=== PATIENT | male | born 1970 | race Caucasian/White ===

== ENCOUNTER 2023-08-17 21:20 | Emergency (ER) | payer OTHER, SELFPAY ==
[2023-08-17] VITALS (22 sets, daily range): BP systolic 167–220; BP diastolic 86–134; PULSE 83–96; O2SAT 92–99; BMI 32.0
--- NOTE | 2023-08-17 21:34 | ECG_ITS ---
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
--- NOTE | 2023-08-17 21:35 | CT_ITS ---
The [address] [address] Patient Name: SHAWANDA GONZALEZ MRN: [id number] date: 1970 Sex: M Assigned Patient Location: ER Current Patient Location: ED.MAIN Accession/Order Number: [id number] Exam Date: 08/17/2023 22:24 Report Date: 08/17/2023 22:53 At the request of: LASHAE PAYAN Procedure: CT head/brain wo con EXAM: CT head/brain wo con HISTORY: Headache, hypertension, left side numb for 24 hrs COMPARISON: None. TECHNIQUE: Axial images were obtained from the skull base to the vertex without contrast enhancement. Sagittal and coronal reformations were provided. FINDINGS: No acute intracranial hemorrhage, extra-axial fluid collection, midline shift shift or mass effect is seen. No space-occupying lesion is demonstrated. There is no evidence of hydrocephalus. There is a patchy asymmetric area of diminished attenuation within the thalamus on the left suggesting an acute small vessel infarction. There are prominent perivascular spaces and/or remote lacunar infarctions within the basal ganglia on the left. Is noted within the left basal ganglia. The cortical damon-white matter interface is intact. There are scattered intracranial vascular calcifications. Only mild mucosal thickening is present within the visualized paranasal sinuses. CT/CT head/brain wo con IMPRESSION: 1. CT findings suggesting an acute small vessel infarction within the right thalamus. 2. No acute intracranial hemorrhage. These findings were discussed with the emergency department (Emiliano Payan) at 2051 hours on 08/17/2023. Electronically authenticated by: EMILIANO MACIEL Date: 08/17/2023 22:53
--- NOTE | 2023-08-17 21:35 | XR_ITS ---
The [address] [address] Patient Name: SHAWANDA GONZALEZ MRN: [id number] date: 1970 Sex: M Assigned Patient Location: ED.MAIN Current Patient Location: ER Accession/Order Number: [id number] Exam Date: 08/17/2023 22:24 Report Date: 08/17/2023 23:12 At the request of: LASHAE PAYAN Procedure: XR chest 1V EXAM: XR chest 1V HISTORY: Hypertension COMPARISON: None. TECHNIQUE: One view of the chest was obtained. FINDINGS: The cardiac silhouette is normal in size. There is mild bibasilar atelectasis and/or scarring. There is no significant pneumothorax or pleural effusion. No acute osseous abnormality is seen. XR/XR chest 1V IMPRESSION: 1. No acute cardiopulmonary abnormality. Electronically authenticated by: Ciara QUEVEDO Date: 08/17/2023 23:12
--- NOTE | 2023-08-17 21:35 | ED.GENADUL1 ---
HPI HPI - General Adult General Chief complaint: Neuro Symptoms/Deficit Stated complaint: NUMBNESS ON LEFT SIDE, HIGH BP Time Seen by Provider: 08/17/23 21:29 History of Present Illness HPI narrative: 52-year-old male presents for elevated blood pressure, headache, and numbness on the left side of his body. 3 days ago he went to the dentist his blood pressure was quite high. Body gave him 5 blood pressure pills to take and he took 1 this morning. The patient has had headache for several days without any trauma or fever or stiff neck. Since last night the left arm and leg have been numb as well as the left side of his face. He has not seen a doctor in many years. He had seen a dentist about 5 months ago and his blood pressure was mildly elevated at that time. Symptoms are continuous. He does not complain of any weakness. Related Data Allergies Allergy/AdvReac Type Severity Reaction Status Date / Time No Known Drug Allergies Allergy Verified 08/17/23 21:37 Opioid HPI Opioid Management Most Recent Opioid Data: Last Pain Scale 5 08/17/23 23:42 Review of Systems ROS Narrative A ten point review of systems is negative except as noted above. Exam Narrative Exam Narrative: Nurses note and vital signs reviewed and patient is not hypoxic. General: The patient appears well and in no apparent distress. Patient is resting comfortably on cart. Skin: Warm, dry, no pallor noted. There is no rash noted. Head: Normocephalic, atraumatic Eye: Normal conjunctiva, no drainage Ears, Nose, Mouth, and Throat: oral mucosa is moist. Nares patent. Cardiovascular: Regular Rate and Rhythm Respiratory: Patient is in no distress, no accessory muscle use, lungs are clear to auscultation, no wheezing, rales or rhonchi Back: non-tender GI: no tenderness to palpation, no masses appreciated. No rebound, guarding, or rigidity noted. Musculoskeletal: The patient has no evidence of calf tenderness, no pitting edema, symmetrical pulses noted bilaterally Neurological: A&O x4, normal speech; cranial nerves II through XII intact. Upper and lower extremity strength 5 out of 5 and symmetric. No pronator drift Psychiatric: Cooperative Constitutional Vital Signs, click to edit/add: Last Vital Signs Pulse 86 08/18/23 00:15 Resp 19 08/18/23 00:15 BP 185/89 H 08/18/23 00:15 Pulse Ox 96 08/17/23 23:59 O2 Del Method Room Air 08/17/23 21:28 Course Vital Signs Vital signs: Vital Signs Pulse Rate 90 08/17/23 21:28 Respiratory Rate 20 08/17/23 21:28 Blood Pressure 220/125 H 08/17/23 21:28 Pulse Oximetry 98 08/17/23 21:28 Oxygen Delivery Method Room Air 08/17/23 21:28 Pulse Rate 86 08/18/23 00:15 Respiratory Rate 19 08/18/23 00:15 Blood Pressure 185/89 H 08/18/23 00:15 Pulse Oximetry 96 08/17/23 23:59 Oxygen Delivery Method Room Air 08/17/23 21:28 Medical Decision Making MDM Narrative Medical decision making narrative: Thalamic infarct is noted and per the patient's history is approximately 24 hours old. His NIH score is 1. He is not a tPA candidate. CTA is ordered and completed here. I have spoken to Dr. Yang at [facility] and the patient is excepted for transfer there by him. The patient is agreeable and stable for transfer. Dr. Yang and I discussed the patient's blood pressure and we will hold off on any antihypertensives if his systolic blood pressure remains below 200. His systolic blood pressure has remained below 200 and he is being transferred by ground. Findings are discussed thoroughly with the patient. Differential Diagnosis Differential Diagnosis: CVA, intracranial hemorrhage Lab Data Lab results reviewed: Yes I reviewed the patient's lab results Labs: Lab Results 08/17/23 08/17/23 Range/Units 21:42 23:05 WBC 8.6 (4.0-11.0) 10^3/uL RBC 4.59 L (4.70-6.10) 10^6/uL Hgb 14.1 (14.0-18.0) g/dL Hct 44.3 (42.0-54.0) % MCV 96.5 H (80.0-94.0) fL MCH 30.7 (25.9-34.0) pg MCHC 31.8 (29.9-35.2) g/dL RDW 13.2 (11.0-15.0) % Plt Count 240 (150-450) 10^3/uL MPV 9.8 (9.5-13.5) fL Neut % (Auto) 52.9 (43.0-75.0) % Lymph % (Auto) 35.0 (20.5-60.0) % Hitchcock % (Auto) 8.6 (1.7-12.0) % Eos % (Auto) 2.6 (0.9-7.0) % Baso % (Auto) 0.6 (0.2-2.0) % Neut # (Auto) 4.5 (1.4-6.5) 10^3/uL Lymph # (Auto) 3.0 (1.2-3.8) 10^3/uL Hitchcock # (Auto) 0.7 (0.3-0.8) 10^3/uL Eos # (Auto) 0.2 (0.0-0.7) 10^3/uL Baso # (Auto) 0.1 (0.0-0.1) 10^3/uL Abs Immat Gran (auto) 0.03 (0.00-0.03) 10^3/uL Imm/Tot Granulo (auto) 0.3 (0.0-0.5) % Sodium 140 (136-145) mmol/L Potassium 3.4 L (3.5-5.1) mmol/L Chloride 101 (98-107) mmol/L Carbon Dioxide 25.4 (21.0-32.0) mmol/L Anion Gap 17.0 BUN 8.0 (7.0-18.0) mg/dL Creatinine 1.19 (0.70-1.30) mg/dL Est GFR ( Amer) >60 (>=60) Est GFR (Non-Af Amer) >60 (>=60) BUN/Creatinine Ratio 6.7 Glucose 130 H (74-106) mg/dL Calcium 9.4 (8.5-10.1) mg/dL Troponin I High Sens 13.3 (4.0-76.1) pg/mL Urine Color Lt. yellow (YELLOW) Urine Clarity Clear (CLEAR) Urine pH 7.0 (5.0-9.0) Ur Specific Hannah 1.010 (1.005-1.025) Urine Protein Negative (NEG/TRACE) mg/dL Urine Glucose (UA) Negative (NEGATIVE) mg/dL Urine Ketones Negative (NEGATIVE) mg/dL Urine Occult Blood Negative (NEGATIVE) Urine Nitrite Negative (NEGATIVE) Urine Bilirubin Negative (NEGATIVE) Urine Urobilinogen 0.2 (0.2-1.0) EU/dL Ur Leukocyte Esterase Negative (NEGATIVE) Urine RBC None seen (0-2) #/HPF Urine WBC None seen (NONE SEEN) #/HPF Ur Squamous Epith Cells None seen (NONE/RARE) #/LPF Urine Crystals None seen (None Seen) #/HPF Amorphous Sediment Few Urine Bacteria None seen (NONE SEEN) #/HPF Urine Casts None seen (NONE SEEN) #/LPF Urine Mucus Trace A (NONE SEEN) Ur Culture Indicated? No Imaging Data CT scan - head: Radiologist's impression: ITS Impressions Chest X-Ray 08/17/23 21:35 IMPRESSION: 1. No acute cardiopulmonary abnormality. Electronically authenticated by: Ciara QUEVEDO Date: 08/17/2023 23:[address] 08/17/23 21:35 IMPRESSION: 1. CT findings suggesting an acute small vessel infarction within the right thalamus. 2. No acute intracranial hemorrhage. These findings were discussed with the emergency department (Emiliano Keller) at 2051 hours on 08/17/2023. Electronically authenticated by: EMILIANO MACIEL Date: 08/17/2023 22:53 Head CTA 08/17/23 23:01 IMPRESSION: 1. Extracranial vessels demonstrate no flow-limiting stenosis, thrombus, dissection, or aneurysm. There is calcific plaque without flow-limiting stenosis in the carotid bifurcations. Moderate stenosis is seen in the origin of the left vertebral artery. 2. Atherosclerotic change with mild to moderate stenosis in the intracranial terminus of the left ICA at the junction of the ICA and intracranial vessels. There is high-grade stenosis with distal hypoplasia of the A1 segment left KAREN with compensatory enlargement of the right A1 segment supplying both A2 segments. Long segment moderate and short segment high-grade stenosis mid to distal portion of the right M1 segment. The MCA bifurcation is patent. Distal branches are patent. No large vessel occlusion. A telephone call regarding the findings in examination was made to and acknowledged by Dr. Keller in the emergency department at 12:15 AM on 08/18/2023. Electronically authenticated by: SAYDA WELCH Date: 08/18/2023 00:18 Neck CTA 08/17/23 23:01 IMPRESSION: 1. Extracranial vessels demonstrate no flow-limiting stenosis, thrombus, dissection, or aneurysm. There is calcific plaque without flow-limiting stenosis in the carotid bifurcations. Moderate stenosis is seen in the origin of the left vertebral artery. 2. Atherosclerotic change with mild to moderate stenosis in the intracranial terminus of the left ICA at the junction of the ICA and intracranial vessels. There is high-grade stenosis with distal hypoplasia of the A1 segment left KAREN with compensatory enlargement of the right A1 segment supplying both A2 segments. Long segment moderate and short segment high-grade stenosis mid to distal portion of the right M1 segment. The MCA bifurcation is patent. Distal branches are patent. No large vessel occlusion. A telephone call regarding the findings in examination was made to and acknowledged by Dr. Keller in the emergency department at 12:15 AM on 08/18/2023. Electronically authenticated by: SAYDA WELCH Date: 08/18/2023 00:18 ECG Data Attestation: I personally reviewed and interpreted this ECG as follows: (EKG on my interpretation shows normal sinus rhythm with a rate of 86 and no acute change.) Critical Care Time Critical Care Time Critical Care Time: Yes Total Critical Care Time: 60 Attestation: Due to the high probability of sudden and clinically significant deterioration in the patient's condition he/she required the highest level of my preparedness to intervene urgently I provided critical care time including documentation time, medication orders and management, reevaluation, vital sign assessment, ordering and reviewing of lab tests, ordering and reviewing of x-ray studies, and admission orders. Aggregate critical care time is 60 minutes including only time during which I was engaged in work directly related to his/her care and did not include time spent treating other patients simultaneously. Discharge Plan Discharge Chief Complaint: Neuro Symptoms/Deficit Clinical Impression: Cerebrovascular accident Patient Disposition: [facility] Time of Disposition Decision: 00:29 Discharge Location: [facility] Condition: Fair Mode of Transportation: EMS
[2023-08-17 21:51] LABS: Basophils Absolute Auto 0.1 10^3/uL (0.0-0.1); Basophils Percent Auto 0.6 % (0.2-2.0); Eosinophils Absolute Auto 0.2 10^3/uL (0.0-0.7); Eosinophils Percent Auto 2.6 % (0.9-7.0); Hematocrit 44.3 % (42.0-54.0); Hemoglobin 14.1 g/dL (14.0-18.0); Immature Granulocytes Abs Auto 0.03 10^3/uL (0.00-0.03); Immature Granulocytes Pct Auto 0.3 % (0.0-0.5); Mean Corpuscular HGB Conc 31.8 g/dL (29.9-35.2); Mean Corpuscular Hemoglobin 30.7 pg (25.9-34.0); Mean Corpuscular Volume 96.5 fL (80.0-94.0); Mean Platelet Volume 9.8 fL (9.5-13.5); Monocytes Absolute Auto 0.7 10^3/uL (0.3-0.8); Monocytes Percent Auto 8.6 % (1.7-12.0); Neutrophils Absolute Auto 4.5 10^3/uL (1.4-6.5); Neutrophils Percent Auto 52.9 % (43.0-75.0); Platelet Count 240 10^3/uL (150-450); Red Blood Count 4.59 10^6/uL (4.70-6.10); Red Cell Distribution Width 13.2 % (11.0-15.0); White Blood Count 8.6 10^3/uL (4.0-11.0)
[2023-08-17 22:02] LABS: BUN Creatinine Ratio 6.7; Calcium 9.4 mg/dL (8.5-10.1); Carbon Dioxide 25.4 mmol/L (21.0-32.0); Chloride 101 mmol/L (98-107); Estimated GFR (African America >60 (>=60); Estimated GFR (Non-African Ame >60 (>=60); Glucose 130 mg/dL (74-106); Potassium 3.4 mmol/L (3.5-5.1); Sodium 140 mmol/L (136-145)
[2023-08-17 22:10] LABS: Troponin I High Sensitivity 13.3 pg/mL (4.0-76.1)
[2023-08-17] MEDS: HYDRALAZINE HCL 20 MG/ML VIAL 10 MG IVP (22:15)
--- NOTE | 2023-08-17 22:25 | PC.NURSE ---
Pt presents with HTN, numbness to left side and headache. Pt states it started last night around 9pm with arm numbness. Pt states he has an appt next week to see a Dr for his HTN as he has no PCP . His BP has been elevated for several days. He borrowed some HTN meds off a friend and has been taking 20mgs . He went fishing this morning but symptoms progressed and he found his BP very elevated this evening and decided to come in to ED due to the numbness and elevated BP. He said he took some headache pills today that contained aspirin.
--- NOTE | 2023-08-17 23:01 | CT_ITS ---
[address] [address] Patient Name: SHAWANDA GONZALEZ MRN: [id number] date: 1970 Sex: M Assigned Patient Location: ER Current Patient Location: Accession/Order Number: [id number] Exam Date: 08/17/2023 23:25 Report Date: 08/18/2023 00:18 At the request of: LASHAE PAYAN Procedure: CT angio head CT angio head, CT angio neck INDICATION:52 years old; Right thalamic stroke TECHNIQUE: CT angiogram of the head and neck was performed. Coronal, sagittal and 3-D reformats were created and reviewed. IV contrast Omnipaque 350 99mL. Without complications . Carotid stenosis measurements were made according to the NASCET criteria. Ionizing radiation dose reduced via iterative reconstruction/FBP blend and body size kV/mA adjustment. COMPARISON: Head CT dated 08/17/2023 at 10:25 PM. FINDINGS: NECK FINDINGS: AORTIC ARCH: Scattered calcific plaque. Origins the great vessels are patent. ANTERIOR CIRCULATION: Common carotid arteries are patent. Calcific plaque without flow-limiting stenosis in the carotid bifurcations. Cervical ICA are tortuous but patent up to the skull base. On the left, there is fusiform dilatation of the mid and distal cervical left ICA, image 47/series 12. No intraluminal thrombus is seen. No dissection is present. POSTERIOR CIRCULATION: There is moderate stenosis of the origin of left vertebral artery. Right vertebral artery origin is patent. There is calcific plaque without stenosis in the V1 and proximal V2 segment of the left vertebral artery. The V2 and V3 segments patent on the left. The V1, V2, and V3 segments are patent on the right. DEVELOPMENTAL ANOMALIES: None. OTHER: No thyroid nodule or adenopathy. HEAD BRAIN: Please see the report of the noncontrast head CT. ANTERIOR CIRCULATION: The intrapetrous, intracavernous, supraclinoid ICA are patent. There is calcific plaque in the intracavernous and supraclinoid portions with mild stenosis bilaterally. Intracranial terminus on the right is patent. On the left, there is atherosclerotic change with mild to moderate stenosis in the intracranial terminus of the junction of the ICA and the anterior middle cerebral arteries on the left. There is high-grade stenosis with distal hypoplasia of the A1 segment of the left KAREN with compensatory enlargement of the right A1 segment supplying both A2 segments. Distal KAREN patent bilaterally. There is mild stenosis of the origin of the M1 segment of the left MCA. Remainder of the left MCA is patent. Distal MCA branches on the left are patent. On the right, there is long segment moderate and short segment severe stenosis in the mid and distal aspect of the right M1 segments. MCA bifurcation is patent. Distal branches of the right MCA beyond the bifurcation are patent. POSTERIOR CIRCULATION: The V4 segments are patent. PICA patent on the left. AICA patent on the right. Basilar artery and basilar tip are patent. SCA patent. LAUNDRY PRESSER patent. Distal LAUNDRY PRESSER distributions are symmetric. No large vessel occlusion. DEVELOPMENTAL ANOMALIES: None. OTHER: No pathologic enhancing lesions. Although the study is not optimized for evaluation the intracranial veins, no large vessel venous occlusion is seen. There is a right dominant transverse sinus. CT/CT angio head IMPRESSION: 1. Extracranial vessels demonstrate no flow-limiting stenosis, thrombus, dissection, or aneurysm. There is calcific plaque without flow-limiting stenosis in the carotid bifurcations. Moderate stenosis is seen in the origin of the left vertebral artery. 2. Atherosclerotic change with mild to moderate stenosis in the intracranial terminus of the left ICA at the junction of the ICA and intracranial vessels. There is high-grade stenosis with distal hypoplasia of the A1 segment left KAREN with compensatory enlargement of the right A1 segment supplying both A2 segments. Long segment moderate and short segment high-grade stenosis mid to distal portion of the right M1 segment. The MCA bifurcation is patent. Distal branches are patent. No large vessel occlusion. A telephone call regarding the findings in examination was made to and acknowledged by Dr. Payan in the emergency department at 12:15 AM on 08/18/2023. Electronically authenticated by: SAYDA WELCH Date: 08/18/2023 00:18
--- NOTE | 2023-08-17 23:01 | CT_ITS ---
[address] [address] Patient Name: SHAWANDA GONZALEZ MRN: [id number] date: 1970 Sex: M Assigned Patient Location: ER Current Patient Location: Accession/Order Number: [id number] Exam Date: 08/17/2023 23:25 Report Date: 08/18/2023 00:18 At the request of: LASHAE PAYAN Procedure: CT angio neck CT angio head, CT angio neck INDICATION:52 years old; Right thalamic stroke TECHNIQUE: CT angiogram of the head and neck was performed. Coronal, sagittal and 3-D reformats were created and reviewed. IV contrast Omnipaque 350 99mL. Without complications . Carotid stenosis measurements were made according to the NASCET criteria. Ionizing radiation dose reduced via iterative reconstruction/FBP blend and body size kV/mA adjustment. COMPARISON: Head CT dated 08/17/2023 at 10:25 PM. FINDINGS: NECK FINDINGS: AORTIC ARCH: Scattered calcific plaque. Origins the great vessels are patent. ANTERIOR CIRCULATION: Common carotid arteries are patent. Calcific plaque without flow-limiting stenosis in the carotid bifurcations. Cervical ICA are tortuous but patent up to the skull base. On the left, there is fusiform dilatation of the mid and distal cervical left ICA, image 47/series 12. No intraluminal thrombus is seen. No dissection is present. POSTERIOR CIRCULATION: There is moderate stenosis of the origin of left vertebral artery. Right vertebral artery origin is patent. There is calcific plaque without stenosis in the V1 and proximal V2 segment of the left vertebral artery. The V2 and V3 segments patent on the left. The V1, V2, and V3 segments are patent on the right. DEVELOPMENTAL ANOMALIES: None. OTHER: No thyroid nodule or adenopathy. HEAD BRAIN: Please see the report of the noncontrast head CT. ANTERIOR CIRCULATION: The intrapetrous, intracavernous, supraclinoid ICA are patent. There is calcific plaque in the intracavernous and supraclinoid portions with mild stenosis bilaterally. Intracranial terminus on the right is patent. On the left, there is atherosclerotic change with mild to moderate stenosis in the intracranial terminus of the junction of the ICA and the anterior middle cerebral arteries on the left. There is high-grade stenosis with distal hypoplasia of the A1 segment of the left KAREN with compensatory enlargement of the right A1 segment supplying both A2 segments. Distal KAREN patent bilaterally. There is mild stenosis of the origin of the M1 segment of the left MCA. Remainder of the left MCA is patent. Distal MCA branches on the left are patent. On the right, there is long segment moderate and short segment severe stenosis in the mid and distal aspect of the right M1 segments. MCA bifurcation is patent. Distal branches of the right MCA beyond the bifurcation are patent. POSTERIOR CIRCULATION: The V4 segments are patent. PICA patent on the left. AICA patent on the right. Basilar artery and basilar tip are patent. SCA patent. ADVISORY SERVICES ASSOCIATE patent. Distal ADVISORY SERVICES ASSOCIATE distributions are symmetric. No large vessel occlusion. DEVELOPMENTAL ANOMALIES: None. OTHER: No pathologic enhancing lesions. Although the study is not optimized for evaluation the intracranial veins, no large vessel venous occlusion is seen. There is a right dominant transverse sinus. CT/CT angio neck IMPRESSION: 1. Extracranial vessels demonstrate no flow-limiting stenosis, thrombus, dissection, or aneurysm. There is calcific plaque without flow-limiting stenosis in the carotid bifurcations. Moderate stenosis is seen in the origin of the left vertebral artery. 2. Atherosclerotic change with mild to moderate stenosis in the intracranial terminus of the left ICA at the junction of the ICA and intracranial vessels. There is high-grade stenosis with distal hypoplasia of the A1 segment left KAREN with compensatory enlargement of the right A1 segment supplying both A2 segments. Long segment moderate and short segment high-grade stenosis mid to distal portion of the right M1 segment. The MCA bifurcation is patent. Distal branches are patent. No large vessel occlusion. A telephone call regarding the findings in examination was made to and acknowledged by Dr. Payan in the emergency department at 12:15 AM on 08/18/2023. Electronically authenticated by: SAYDA WELCH Date: 08/18/2023 00:18
[2023-08-17 23:23] LABS: Bilirubin Urine NEGATIVE (NEGATIVE); Blood Urine NEGATIVE (NEGATIVE); Clarity Urine CLEAR (CLEAR); Color Urine LT. YELLOW (YELLOW); Glucose Urine UA NEGATIVE (NEGATIVE); Ketones Urine NEGATIVE (NEGATIVE); Leukocyte Esterase Urine NEGATIVE (NEGATIVE); Nitrite Urine NEGATIVE (NEGATIVE); Protein Urine NEGATIVE (NEG/TRACE); Urobilinogen Urine 0.2 EU/dL (0.2-1.0)
[2023-08-17 23:28] LABS: WBC Urine NONE SEEN #/HPF (NONE SEEN)
[2023-08-17 23:29] LABS: Amorphous Sediment Urine FEW; Bacteria Urine NONE SEEN #/HPF (NONE SEEN); Cast Seen? NONE SEEN #/LPF (NONE SEEN); Crystals Seen? None Seen #/HPF (None Seen); Mucus Urine TRACE (NONE SEEN); RBC Urine NONE SEEN #/HPF (0-2); Squamous Epithelial Cell Urine NONE SEEN #/LPF (NONE/RARE); Urine Culture Indicated NO
[2023-08-17] MEDS: ACETAMINOPHEN 325 MG TABLET 650 MG PO (23:42)
[2023-08-17] MEDS: ASPIRIN 81 MG TAB.CHEW 324 MG PO (23:42)
[2023-08-18] VITALS (34 sets, daily range): BP systolic 147–186; BP diastolic 70–92; PULSE 70–95
== END 2023-08-18 04:13 | disposition short-term general hospital (02) ==
PROVIDERS: Emergency Provider Emergency Medicine
DX: I63.9 Cerebral infarction, unspecified (principal); R29.701 NIHSS score 1
CPT/HCPCS: 36415; 70450; 70496; 70498; 71045; 80048; 81001; 84484; 85025; 93005; 99285; Q9967